=== PATIENT | male | born 1980 | race American Indian/Alaskan Native ===

== ENCOUNTER 2017-12-29 12:37 | Emergency (ER) | payer OTHER ==
[2017-12-29 12:59] VITALS: BP 123/78; PULSE 47; RESP 16; TEMP 98; O2SAT 98
[2017-12-29 13:24] LABS: SQUAMOUS EPITHIAL < 1 /hpf (0-5); URINE BILIRUBIN NEGATIVE (NEGATIVE); URINE BLOOD NEGATIVE (NEGATIVE); URINE CLARITY Clear (Clear); URINE COLOR Yellow (YELLOW); URINE GLUCOSE (UA) NORMAL (Normal); URINE LEUKOCYTE ESTERASE NEG Leu/uL (Negative); URINE PROTEIN NEGATIVE (NEGATIVE); URINE UROBILINOGEN NORMAL mg/dL (0.2-1.0)
[2017-12-29 13:39] LABS: BARBITURATES, UR NEGATIVE (NEGATIVE); BENZODIAZEPINES, UR NEGATIVE (NEGATIVE); OPIATES, UR NEGATIVE (NEGATIVE)
[2017-12-29 13:55] LABS: PHENCYCLIDINE, UR NEGATIVE (NEGATIVE)
--- NOTE | 2017-12-29 14:56 | C.PDOC ---
Time Seen by Provider: 12/29/17 13:00 Chief Complaint (Nursing): Psychiatric Evaluation Past Medical History Vital Signs: Last Vital Signs Temp 98 F 12/29/17 12:46 Pulse 47 L 12/29/17 12:46 Resp 16 12/29/17 12:46 BP 123/78 12/29/17 12:46 Pulse Ox 98 12/29/17 12:46 Family History: States: Unknown Family Hx - Social History Hx Alcohol Use: Yes Hx Substance Use: No - Immunization History Hx Tetanus Toxoid Vaccination: No Hx Influenza Vaccination: No Hx Pneumococcal Vaccination: No Physical Exam - Physical Exam Appears: Well, Non-toxic Skin: Warm, Dry Head: Atraumatic, Normacephalic Eye(s): bilateral: PERRL, EOMI Throat: Normal Neck: Normal ROM, Trachea Midline Lymphatic: No Adenopathy Chest: Symmetrical Cardiovascular: Rhythm Regular, No Murmur Respiratory: Normal Breath Sounds, No Wheezing Gastrointestinal/Abdominal: No Distention Extremity: Normal ROM, No Deformity Neurological/Psych: Oriented x3, Normal Speech, Normal Motor ED Course And Treatment O2 Sat by Pulse Oximetry: 98 Progress Note: Evaluated by aircraft layout worker Jose who charmaine Franco. Pt stable for dc with followup outpatinet at [facility]. Disposition - Disposition Disposition: HOME/ ROUTINE Disposition Time: 14:54 Condition: GOOD Additional Instructions: FOLLOW UP WITH [facility] INSTRUCTED BY [employer] Instructions: Anxiety, Adult (DC), Adjustment Disorder - Clinical Impression Clinical Impression: Anxiety, Adjustment disorder
--- NOTE | 2017-12-29 14:56 | C.PDOC ---
Time Seen by Provider: 12/29/17 13:00 Chief Complaint (Nursing): Psychiatric Evaluation Past Medical History Vital Signs: Last Vital Signs Temp 98 F 12/29/17 12:46 Pulse 47 L 12/29/17 12:46 Resp 16 12/29/17 12:46 BP 123/78 12/29/17 12:46 Pulse Ox 98 12/29/17 12:46 Family History: States: Unknown Family Hx - Social History Hx Alcohol Use: Yes Hx Substance Use: No - Immunization History Hx Tetanus Toxoid Vaccination: No Hx Influenza Vaccination: No Hx Pneumococcal Vaccination: No ED Course And Treatment O2 Sat by Pulse Oximetry: 98 Disposition - Disposition Forms: [employer] ([employer])
== END 2017-12-29 15:04 | disposition home or self-care (01) ==
LOC: C.ER 12:37
DX: F41.9 Anxiety disorder, unspecified (principal); F43.20 Adjustment disorder, unspecified